=== PATIENT | female | born 1960 | race Caucasian/White ===

== ENCOUNTER 2021-11-26 16:02 | Outpatient (REF) | payer OTHER, SELFPAY ==
--- NOTE | ~2021-11-26 | XR_ITS ---
EXAMINATION: XR KNEE, LEFT CLINICAL INFORMATION: Arthropathic psoriasis COMPARISON: None TECHNIQUE: Four views of the left knee. FINDINGS: Bone alignment is normal. No fracture or dislocation is seen. There is slight lateral tilt of the patella and small osteophytes. The joint spaces are otherwise normal. There is a small joint effusion. There is an SFA vascular stent. XR/XR knee LT 3V IMPRESSION: Degenerative changes at the patellofemoral joint and small joint effusion.
[2021-11-26 16:33] LABS: MANUAL DIFF FLAG NO
[2021-11-26 17:47] LABS: Basophils Percent Auto 0.2 % (0-2); Eosinophils Absolute Auto 0.2 X10*3/uL (0.0-0.4); Eosinophils Percent Auto 2.2 % (0-4); Hematocrit 45.2 % (37.0-47.0); Hemoglobin 14.3 g/dl (12.0-16.0); Imm Gran Abs Auto 0.02 X10*3/uL (0.00-0.03); Imm Gran Pct Auto 0.2 % (0.0-0.4); Mean Corpuscular HGB Conc 31.6 g/dl (31.0-35.0); Mean Corpuscular Hemoglobin 29.5 pg (27.0-33.0); Mean Corpuscular Volume 93.4 fL (80.0-98.0); Mean Platelet Volume 10.4 fL (9.4-12.3); Monocytes Absolute Auto 0.7 X10*3/uL (0.1-1.2); Monocytes Percent Auto 8.8 % (2-11); Neutrophils Absolute Auto 4.2 x10*3/uL (2.0-8.3); Neutrophils Percent Auto 51.6 % (45-73); Platelet Count 284 X10*3/uL (160-400); Red Blood Count 4.84 X10*6/uL (4.20-5.50); Red Cell Distribution Width 13.1 % (11.0-16.0); White Blood Count 8.2 X10*3/uL (4.8-10.8)
[2021-11-26 18:17] LABS: Alanine Aminotransferase 12 U/L (0-31); Albumin Level 4.3 g/dL (3.5-5.0); Alkaline Phosphatase 111 U/L (39-117); Anion Gap 12 (12-20); Aspartate Amino Transferase 13 U/L (5-31); Bilirubin Total 0.3 mg/dL (0.0-1.0); Blood Urea Nitrogen 18 mg/dL (9-16); C Reactive Protein 0.27 mg/dL (< or = 0.50); Calcium 9.6 mg/dL (8.4-10.2); Carbon Dioxide 26 mmol/L (22-29); Chloride 107 mmol/L (96-108); Estimated Glomerular Filt Rate > 60; Glucose Random 80 mg/dL (60-115); Potassium 4.2 mmol/L (3.3-5.1); Sodium 141 mmol/L (135-145); Total Protein 6.9 g/dL (6.5-8.0)
[2021-11-26 18:30] LABS: Erythrocyte Sedimentation Rate 8 MM/HR (0-20)
== END 2021-11-26 16:03 | disposition home or self-care (01) ==
LOC: HO.LAB 16:02
PROVIDERS: PCP Internal Medicine; Visit Provider Internal Medicine Rheumatology
DX: L40.50 Arthropathic psoriasis, unspecified (principal); Z79.899 Other long term (current) drug therapy
CPT/HCPCS: 36415; 73562; 80053; 85025; 85652; 86140

== ENCOUNTER 2022-03-26 11:38 | Outpatient (REF) | payer OTHER, SELFPAY ==
--- NOTE | ~2022-03-26 | XR_ITS ---
EXAMINATION: XR FOOT, LEFT CLINICAL INFORMATION: Plantar fascial 5 pneumatosis. COMPARISON: None TECHNIQUE: AP, lateral, and oblique views of the left foot. FINDINGS: The bones and soft tissues are normal. No fracture. Alignment is anatomic. Joint spaces are maintained. XR/XR foot LT min 3V IMPRESSION: Unremarkable left foot exam.
== END 2022-03-26 11:39 | disposition home or self-care (01) ==
LOC: HO.XRAY 11:38
PROVIDERS: PCP Internal Medicine; Visit Provider Internal Medicine Rheumatology
DX: M72.2 Plantar fascial fibromatosis (principal)
CPT/HCPCS: 73630

== ENCOUNTER → 2022-10-01 10:18 | Outpatient (BNVA) | payer OTHER, SELFPAY | PROVIDERS: PCP Internal Medicine; Visit Provider Internal Medicine Rheumatology | DX: Z13.89 Encounter for screening for other disorder (principal) ==

== ENCOUNTER 2022-10-01 11:19 | Outpatient (REF) | payer OTHER, SELFPAY ==
[2022-10-01 13:19] LABS: MANUAL DIFF FLAG NO
[2022-10-01 13:23] LABS: Basophils Percent Auto 0.5 % (0-2); Eosinophils Absolute Auto 0.2 X10*3/uL (0.0-0.4); Hematocrit 44.4 % (37.0-47.0); Hemoglobin 14.3 g/dl (12.0-16.0); Imm Gran Abs Auto 0.02 X10*3/uL (0.00-0.03); Imm Gran Pct Auto 0.3 % (0.0-0.4); Lymphocytes Absolute Auto 2.4 X10*3/uL (1.2-4.9); Lymphocytes Percent Auto 31.5 % (20-40); Mean Corpuscular HGB Conc 32.2 g/dl (31.0-35.0); Mean Corpuscular Hemoglobin 30.8 pg (27.0-33.0); Mean Corpuscular Volume 95.7 fL (80.0-98.0); Mean Platelet Volume 10.7 fL (9.4-12.3); Monocytes Absolute Auto 0.6 X10*3/uL (0.1-1.2); Monocytes Percent Auto 8.1 % (2-11); Neutrophils Absolute Auto 4.4 x10*3/uL (2.0-8.3); Neutrophils Percent Auto 57.6 % (45-73); Platelet Count 236 X10*3/uL (160-400); Red Blood Count 4.64 X10*6/uL (4.20-5.50); Red Cell Distribution Width 13.5 % (11.0-16.0); White Blood Count 7.6 X10*3/uL (4.8-10.8)
[2022-10-01 13:39] LABS: C Reactive Protein 0.12 mg/dL (< or = 0.50)
[2022-10-01 14:01] LABS: Erythrocyte Sedimentation Rate 4 MM/HR (0-20)
[2022-10-03 19:53] LABS: TS Negative Control Passed; TS Panel A 1; TS Panel B 2; TS Positive Control Passed; TSpotTB Negative (Negative)
== END 2022-10-01 11:20 | disposition home or self-care (01) ==
LOC: HO.10HDL 11:19
PROVIDERS: Visit Provider Internal Medicine Rheumatology
DX: Z11.1 Encounter for screening for respiratory tuberculosis (principal); L40.50 Arthropathic psoriasis, unspecified; Z79.899 Other long term (current) drug therapy
CPT/HCPCS: 36415; 85025; 85652; 86140; 86481

== ENCOUNTER 2023-03-25 10:05 | Outpatient (AMB) | payer OTHER, SELFPAY ==
--- NOTE | 2023-03-25 10:56 | MHC.OFFVIS ---
Intake Vital Signs 03/25/23 11:03 Height 5 ft 1 in Weight 164 lb 0.383 oz BMI 31.0 BP 124/70 Blood Pressure Location Lt brachial Position Sitting Pulse 72 Pulse Source Pulse Oximeter Temp 97.2 F Temp Source Skin Pulse Oximetry (%) 95 Oxygen Delivery Method Room Air Intake Visit Reasons: psa Intake Note: Patient presents today for PsA follow up. Police Chief Required: No Accompanied by: Self / Same As Patient Allergies codeine Allergy (Intermediate, Verified 03/25/23 10:57) Nausea and Vomiting morphine Allergy (Intermediate, Verified 03/25/23 10:57) Nausea and Vomiting prednisone Allergy (Intermediate, Verified 03/25/23 10:57) Rash Medication List - Last Reconciled 03/25/23 by Aris Recinos MD acetaminophen (Tylenol Extra Strength) 1,000 mg PO DAILY atorvastatin 80 mg PO DAILY cilostazol 100 mg PO BID etanercept (Enbrel SureClick) 50 mg subcut QWEEK triamcinolone acetonide 0.1% 1 appl topical DAILY HPI HPI Comments History of Present Illness Details The patient returns for evaluation of her psoriatic arthritis and psoriasis. She remains on Enbrel 50 mg weekly. She reports no side effects that she can determine from the Enbrel. She does occasionally miss a dose because of forgetfulness but that does not really cause any flare of symptoms. However she does have a few patches of psoriasis on the right back and in the legs. She is using some aywp-jqv-avpoent corticosteroid cream and had been using triamcinolone cream but says that was not all that helpful. We discussed previously possibly switching to a different medication for the psoriasis and psoriatic rash trace but she was comfortable using the Enbrel. Her peripheral artery disease seems to be stable; she gets some cramping in the calf muscles with fast walking. 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 Carpal tunnel syndrome on both sides Psoriatic arthritis Surgical History Hx of cholecystectomy Hx of tendinitis History of carpal tunnel surgery Social History (Updated 03/25/23 @ 11:03 by ROMMEL Graham) Household Members Other:: lives alone Housing: Apartment Are you a primary laboratory animal care veterinarian to a significant other at home: No Do you presently have visiting nurse or other home services: No 75 years or older and lives alone: No Alcohol intake: never Patient Tobacco Use Status: Current everyday Tobacco user Tobacco use type: Cigarette Cigarettes Per Day: 2 Years Smoked: 35 years e-Cigarette/Vaping Use: Never Used service: No Current occupational status: employed Current occupation: production intern Review of Systems Const Details: Negative for appetite change, weight change, fever, chills, malaise and fatigue Eyes Details: Negative for vision change, dry eyes,headaches and dizziness Card Details: Negative chest pain, edema and syncope Resp Details: Negative for SOB, cough and wheezing GI Details: Negative indigestion/heartburn, nausea, abdominal pain, bowel changes, diarrhea, constipation and bloody stool. Denilson/Lymph Details: Negative for excessive bruising or bleeding. Physical Exam Vital Signs: Last Vital Signs Temp 97.2 F 03/25/23 11:03 Pulse 72 03/25/23 11:03 BP 124/70 03/25/23 11:03 Pulse Ox 95 03/25/23 11:03 Oxygen Delivery Method Room Air 03/25/23 11:03 BMI result Body Mass Index 31.0 APPEARANCE: Patient in no acute distress EYES no redness, pupils equal and reactive to light, eyelids normal EXTREMITIES:? No edema, no calf tenderness SKIN:? Scattered papules over the lower legs and right flank with some slight scaling consistent with psoriasis. JOINT EXAM: Cervical Spine:.? Full range of motion without pain; no tenderness. Thoracic Spine:.? No scoliosis.? No tenderness on palpation. Lumbar Spine:.? Alignment normal.? Full range of motion without pain, no tenderness. Chest Wall:.? No tenderness, swelling, increased warmth or erythema. Hands:.? Right:? There is some slight bony enlargement without tenderness at the PIP joints.? There is some catching and tenderness along the 4th flexor tendon. There is no other soft tissue swelling, thenar atrophy, flexor tendon triggering, or sensory loss.? Left:? Normal pain-free range of motion with some slight bony enlargement without tenderness at the PIP joints.? No flexor tendon triggering, soft tissue swelling, increased warmth, thenar atrophy, sensory loss or erythema. Wrists:.? Normal pain-free range of motion without tenderness, swelling, increased warmth or erythema. Elbows:. Normal pain-free range of motion without tenderness, swelling, increased warmth or erythema. Shoulders:.?? Full range of motion without pain. No tenderness, weakness, swelling, increased warmth or erythema. Hips:.? Full range of motion without pain. Hip bursa:.? No tenderness. Knees:.??Left:? Normal pain-free range of motion.? There is no effusion, tenderness, redness, warmth, or popliteal tenderness.? She has mild patellofemoral crepitus.? Right:? Normal pain-free range of motion with slight patellofemoral crepitus but no effusion, tenderness, swelling, increased warmth or erythema.? Ankles:.? Normal pain-free range of motion without tenderness, swelling, increased warmth or erythema. The the shorter Feet: Right:? Slight hallux valgus deformity and bony enlargement at the 1st MTP.? However there is no tenderness in that foot.? No areas of soft tissue swelling or redness.? Left:? There is no medial heel tenderness.? Elsewhere her other joints in the foot have pain-free range of motion with no tenderness, swelling, increased warmth or erythema. ? EARS: External ear normal, canal clear and tympanic membrane normal. NOSE/SINUS: Airflow through both nares, no nasal discharge, no bleeding THROAT: Oral mucosa moist, no ulcerations NECK: No thyromegaly or masses, no adenopathy, trachea midline. HEART: Regulrar rhythm, S1-S2 heard, no murmurs, rubs or gallops. LUNG: Clear to percussion and auscultation ABD: Normal bowel sounds, no organomegaly, masses or tenderness. EXTREMITIES: No edema, no calf tenderness, normal peripheral pulses. NEURO: Oriented and alert x3. No focal weakness. Reflexes symmetric. Gait normal. SKIN: No inflammatory or neoplastic lesions. Normal color and turgor JOINT EXAM:.?? Cervical Spine:.? Full range of motion without pain; no tenderness. Thoracic Spine:.? No scoliosis.? No tenderness on palpation. Lumbar Spine:.? Alignment normal.? Full range of motion without pain, no tenderness. Chest Wall:.? No tenderness, swelling, increased warmth or erythema. Hands:.? Normal pain-free range of motion without tenderness, swelling, increased warmth or erythema. Able to make a full fist and has a good plant operator/shift supervisor strength. Wrists:.? Normal pain-free range of motion without tenderness, swelling, increased warmth or erythema. Elbows:. Normal pain-free range of motion without tenderness, swelling, increased warmth or erythema. Shoulders:.?? Full range of motion without pain. No tenderness, weakness, swelling, increased warmth or erythema. Hips:.? Full range of motion without pain. Hip bursa:.? No tenderness. Knees:.?? Normal pain-free range of motion without tenderness, swelling, increased warmth or erythema.? There is no effusion or crepitation Ankles:.? Normal pain-free range of motion without tenderness, swelling, increased warmth or erythema. Feet:.? Normal pain-free range of motion without tenderness, swelling, increased warmth or erythema. Tender points:.? No tenderness to digital palpation at the occiput, trapezius, second rib, lateral epicondyle, knees, greater trochanter and gluteal area bilaterally. ? 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 Some MTP involvement, trigger fingers. Enbrel 02/25 through 04/27 - some improvement in arthritis but not enough to continue. She had CTR and tendon releases that were helpful Enbrel restarted ~ 2012 by dermatology for skin disease with good improvement. Enbrel stopped due to insurance denial 12/29. Skin and joint disease gradually worse fall 2015 - 2016. Methotrexate restarted 10/30, Enbrel added Methotrexate stopped, May 2017 since the Enbrel worked so well and the methotrexate was costly for her. Code(s): L40.50 - Arthropathic psoriasis, unspecified Plan Psoriatic arthritis with good control of synovitis on the just the Enbrel. The psoriasis seems a bit more active but she admits to occasionally missing a dose of the Enbrel. We discussed possibly switching to a trial of Humira or Otezla to see if we could get better control of the psoriasis but she wants to stay with the Enbrel. I will prescribe some clobetasol cream and see if that is covered on her insurance. She was also offered a dermatology referral but does not want to do that yet. The Enbrel will be continued for now. Follow up in 6 months is recommended. 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
[2023-03-25 11:03] VITALS: BP 124/70; PULSE 72; TEMP 36.2; O2SAT 95; BMI 31.0
== END 2023-03-25 11:47 | disposition home or self-care (01) ==
PROVIDERS: PCP Internal Medicine; Visit Provider Internal Medicine Rheumatology
DX: L40.9 Psoriasis, unspecified (principal); Z79.899 Other long term (current) drug therapy; L40.50 Arthropathic psoriasis, unspecified
CPT/HCPCS: 99213

== ENCOUNTER → 2023-03-25 10:05 | Outpatient (BNVA) | payer OTHER, SELFPAY | PROVIDERS: PCP Internal Medicine; Visit Provider Internal Medicine Rheumatology ==

== ENCOUNTER 2023-09-24 10:01 | Outpatient (AMB) | payer OTHER, SELFPAY ==
[2023-09-24 10:24] VITALS: BP 132/64; PULSE 80; O2SAT 96; BMI 29.8
--- NOTE | 2023-09-24 10:24 | A.OFFVIS_ITS ---
Intake Vital Signs 3 09/24/23 10:24 Height 5 ft 1 in Weight 157 lb 13.616 oz BMI 29.8 BP 132/64 Blood Pressure Location Rt brachial Position Sitting Pulse 80 Pulse Source Pulse Oximeter Pulse Oximetry (%) 96 Oxygen Delivery Method Room Air Intake Visit Reasons: psa with Dr Vasquez Intake Note: Patient last seen by Dr Recinos 03/25/23 presents today for follow up and test results. Reports bl hip pain progressing Cable Weaver Required: No Accompanied by: Self / Same As Patient Allergies codeine Allergy (Intermediate, Verified 09/24/23 10:27) Nausea and Vomiting morphine Allergy (Intermediate, Verified 09/24/23 10:27) Nausea and Vomiting prednisone Allergy (Intermediate, Verified 09/24/23 10:27) Rash Medication List - Last Reconciled 09/24/23 by Walter Vasquez MD acetaminophen (Tylenol Extra Strength) 1,000 mg PO DAILY atorvastatin 80 mg PO DAILY cilostazol 100 mg PO BID clobetasol 0.05% 1 appl topical BID 1 month Enbrel SureClick (etanercept) 50 mg subcut QWEEK NS triamcinolone acetonide 0.1% 1 appl topical DAILY HPI HPI Comments 2 History of Present Illness0 Details 63-year-old female with psoriasis and ps oriatic arthritis returns for follow-up. This is her 1st visit with me. She used to follow-up with Dr. Recinos. Patient states that she has been doing about the same overall. Continues to have psoriasis patches on her legs. She has been using psoriasin cream which helps. She continues to have pain on the outer aspect of both hips, more significant on the left. Most recent history by Dr. Recinos 03/2023: The patient returns for evaluation of her psoriatic arthritis and psoriasis. She remains on Enbrel 50 mg weekly. She reports no side effects that she can determine from the Enbrel. She does occasionally miss a dose because of forgetfulness but that does not really cause any flare of symptoms. However she does have a few patches of psoriasis on the right back and in the legs. She is using some qjhb-nzn-courqlc corticosteroid cream and had been using triamcinolone cream but says that was not all that helpful. We discussed previously possibly switching to a different medication for the psoriasis and psoriatic rash trace but she was comfortable using the Enbrel. Her peripheral artery disease seems to be stable; she gets some cramping in the calf muscles with fast walking. [facility] Medical History long-term current use of immunosuppressive drug Carpal tunnel syndrome on both sides Psoriatic arthritis Surgical History Hx of cholecystectomy Hx of tendinitis History of carpal tunnel surgery Social History Household Members Other:: lives alone Housing: Apartment Are you a primary child care giver to a significant other at home: No Do you presently have visiting nurse or other home services: No 75 years or older and lives alone: No Alcohol intake: never Patient Tobacco Use Status: Current everyday Tobacco user Tobacco use type: Cigarette Cigarettes Per Day: 2 Years Smoked: 35 years e-Cigarette/Vaping Use: Never Used service: No Current occupational status: employed Current occupation: production roustabout Review of Systems Musc Reports arthralgias Skin/Breast Reports pruritus and Reports rash Physical Exam Vital Signs: Last Vital Signs Pulse 80 09/24/23 10:24 BP 132/64 09/24/23 10:24 Pulse Ox 96 09/24/23 10:24 Oxygen Delivery Method Room Air 09/24/23 10:24 BMI result Body Mass Index 29.8 Const General: cooperative, healthy appearing and comfortable Nutritional Appearance: overweight Orientation/consciousness: patient oriented x3 Limitations: no limitations HEENT Head: Yes normocephalic and Yes atraumatic Mouth: moist mucous membranes Resp Effort & Inspection: normal respiratory effort and able to speak in complete sentences Auscultation: clear to auscultation bilaterally Cardio Rate: regular rate Skin Other: Psoriasis patches on both knees and right leg Neuro General: patient oriented x3 Extrem Other: Osteoarthritic changes of both hands with no active synovitis Normal range of motion of both shoulders Left trochanteric bursa area tenderness Assessment & Plan Assessment & Plan (1) Psoriatic arthritis: Comment: Pauci-articular, onset early 2007. Some MTP involvement, trigger fingers. Enbrel 02/25 through 04/27 - some improvement in arthritis but not enough to continue. She had CTR and tendon releases that were helpful Enbrel restarted ~ 2012 by dermatology for skin disease with good improvement. Enbrel stopped due to insurance denial 12/29. Skin and joint disease gradually worse fall 2015 - 2016. Methotrexate restarted 10/30, Enbrel added Methotrexate stopped, May 2017 since the Enbrel worked so well and the methotrexate was costly for her. Code(s): L40.50 - Arthropathic psoriasis, unspecified Plan: This is a 63-year-old female with psoriasis and psoriatic arthritis who presents for follow-up. This is her 1st visit with me. She used to follow-up with Dr. Recinos. And is doing fairly well. There is no active synovitis. She continues to have psoriasis patches but they are not bothersome for her. In the past there was some suggestion to switch to Humira or Otezla but patient was not interested. 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 Panel 6 Months L40.50 - Arthropathic psoriasis, unspecified C Reactive Protein 6 Months L40.50 - Arthropathic psoriasis, unspecified T Spot TB 6 Months Z11.7 - Encounter for testing for latent tuberculosis infection Erythrocyte Sedimentation Rate 6 Months L40.50 - Arthropathic psoriasis, unspecified Hepatitis A,B,C Profile 6 Months Z11.59 - Encounter for screening for other viral diseases Coding Level of Care Code Est Pt Level 4 (43027) Diagnoses Psoriatic arthritis L40.50 long-term current use of immunosuppressive drug Z79.899 Psoriasis L40.9 Trochanteric bursitis of left hip M70.62
== END 2023-09-24 10:51 | disposition home or self-care (01) ==
PROVIDERS: PCP Internal Medicine; Visit Provider Student in an Organized Health Care Education/Training Program
DX: L40.50 Arthropathic psoriasis, unspecified (principal); Z79.899 Other long term (current) drug therapy; L40.9 Psoriasis, unspecified; M70.62 Trochanteric bursitis, left hip
CPT/HCPCS: 99214

== ENCOUNTER → 2023-09-24 10:01 | Outpatient (BNVA) | payer OTHER, SELFPAY | PROVIDERS: PCP Internal Medicine; Visit Provider Student in an Organized Health Care Education/Training Program ==

== ENCOUNTER 2024-03-25 10:35 | Outpatient (AMB) | payer OTHER, SELFPAY ==
--- NOTE | 2024-03-25 10:36 | A.OFFVIS_ITS ---
Vital Signs 03/25/24 10:41 Height 5 ft 1 in Weight 160 lb 7.944 oz BMI 30.3 BP 122/62 Blood Pressure Location Rt brachial Position Sitting Pulse 69 Pulse Source Pulse Oximeter Pulse Oximetry (%) 97 Oxygen Delivery Method Room Air Intake Visit Reasons: PsA Intake Note: Patient presents for PsA. Allergies codeine Allergy (Intermediate, Verified 03/25/24 10:39) Nausea and Vomiting morphine Allergy (Intermediate, Verified 03/25/24 10:39) Nausea and Vomiting prednisone Allergy (Intermediate, Verified 03/25/24 10:39) Rash Medication List - Last Reconciled 03/25/24 by Walter Vasquez MD acetaminophen (Tylenol Extra Strength) 1,000 mg PO DAILY atorvastatin 80 mg PO DAILY cilostazol 100 mg PO BID clobetasol 0.05% 1 appl topical BID 1 month Enbrel SureClick (etanercept) 50 mg subcut QWEEK NS triamcinolone acetonide 0.1% 1 appl topical DAILY HPI Comments Details: 63-year-old female with psoriasis and psoriatic arthritis returns for follow-up. She remains on Enbrel 50 mg once weekly Patient states that she has been doing about the same overall. Continues to have psoriasis patches on her legs. She uses OTC creams which provides some relief. She continues to have pain on the outer aspect of both hips, more significant on the left. 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 Carpal tunnel syndrome on both sides Psoriatic arthritis Surgical History Hx of cholecystectomy Hx of tendinitis History of carpal tunnel surgery Family History Mother Cancer Social History Household Members Other:: lives alone Housing: Apartment Are you a primary rn managed care to a significant other at home: No Do you presently have visiting nurse or other home services: No 75 years or older and lives alone: No Alcohol intake: never Patient Tobacco Use Status: Current everyday Tobacco user Tobacco use type: Cigarette Cigarettes Per Day: 2 Years Smoked: 35 years e-Cigarette/Vaping Use: Never Used service: No Current occupational status: employed Current occupation: production operator Review of Systems [facility] Reports arthralgias Skin/Breast Reports pruritus and Reports rash Physical Exam Vital Signs: Last Vital Signs Pulse 69 03/25/24 10:41 BP 122/62 03/25/24 10:41 Pulse Ox 97 03/25/24 10:41 Oxygen Delivery Method Room Air 03/25/24 10:41 BMI result Body Mass Index 30.3 Const General: cooperative, healthy appearing and comfortable Nutritional Appearance: overweight Orientation/consciousness: patient oriented x3 Limitations: no limitations HEENT Head: Yes normocephalic and Yes atraumatic Mouth: moist mucous membranes Resp Effort & Inspection: normal respiratory effort and able to speak in complete sentences Auscultation: clear to auscultation bilaterally Cardio Rate: regular rate Skin Other: Subtle psoriasis patches on her left Neuro General: patient oriented x3 Extrem Other: Osteoarthritic changes of both hands with no active synovitis Normal range of motion of both shoulders Left trochanteric bursa area tenderness with negative Alma Delia's test Assessment & Plan Assessment & Plan (1) Psoriatic arthritis: Comment: Pauci-articular, onset early 2007. Some MTP involvement, trigger fingers. Enbrel 02/25 through 04/27 - some improvement in arthritis but not enough to continue. She had CTR and tendon releases that were helpful Enbrel restarted ~ 2012 by dermatology for skin disease with good improvement. Enbrel stopped due to insurance denial 12/29. Skin and joint disease gradually worse fall 2015 - 2016. Methotrexate restarted 10/30, Enbrel added Methotrexate stopped, May 2017 since the Enbrel worked so well and the methotrexate was costly for her. Code(s): L40.50 - Arthropathic psoriasis, unspecified Category: Medical Plan: This is a 63-year-old female with psoriasis and psoriatic arthritis who presents for follow-up. She is doing fairly well. There is no active synovitis. She continues to have psoriasis patches but they are not bothersome for her. In the past there was some suggestion to switch to Humira or Otezla but patient was not interested. 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 Patient fully aware. Advised patient to seek medical care GAURAV if patient has an infection and advised patient to stop the medication until the infection is resolved. (3) Psoriasis: Code(s): L40.9 - Psoriasis, unspecified Category: Medical Plan: As mentioned above (4) Trochanteric bursitis of left hip: Code(s): M70.62 - Trochanteric bursitis, left hip Category: Medical Plan: Provide patient with a printout of home exercises Plan I spent 30 minutes reviewing patient's chart, evaluating patient, ordering diagnostic workup, counseling patient and documenting in the chart Orders: Orders Comprehensive Met. 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
[2024-03-25 10:41] VITALS: BP 122/62; PULSE 69; O2SAT 97; BMI 30.3
== END 2024-03-25 10:54 | disposition home or self-care (01) ==
PROVIDERS: PCP Internal Medicine; Visit Provider Student in an Organized Health Care Education/Training Program
DX: L40.50 Arthropathic psoriasis, unspecified (principal); Z79.899 Other long term (current) drug therapy; L40.9 Psoriasis, unspecified; M70.62 Trochanteric bursitis, left hip
CPT/HCPCS: 99214

== ENCOUNTER → 2024-03-25 10:35 | Outpatient (BNVA) | payer OTHER, SELFPAY | PROVIDERS: PCP Internal Medicine; Visit Provider Student in an Organized Health Care Education/Training Program ==

== ENCOUNTER 2024-03-25 11:02 | Outpatient (REF) | payer OTHER, SELFPAY ==
[2024-03-25 13:08] LABS: MANUAL DIFF FLAG NO
[2024-03-25 13:13] LABS: Basophils Absolute Auto 0.1 X10*3/uL (0.0-0.2); Basophils Percent Auto 0.6 % (0-2); Eosinophils Absolute Auto 0.6 X10*3/uL (0.0-0.4); Eosinophils Percent Auto 7.1 % (0-4); Hematocrit 44.5 % (37.0-47.0); Hemoglobin 14.5 g/dl (12.0-16.0); Imm Gran Abs Auto 0.02 X10*3/uL (0.00-0.03); Imm Gran Pct Auto 0.2 % (0.0-0.4); Lymphocytes Absolute Auto 2.1 X10*3/uL (1.2-4.9); Lymphocytes Percent Auto 26.4 % (20-40); Mean Corpuscular HGB Conc 32.6 g/dl (31.0-35.0); Mean Corpuscular Hemoglobin 30.1 pg (27.0-33.0); Mean Corpuscular Volume 92.5 fL (80.0-98.0); Mean Platelet Volume 10.1 fL (9.4-12.3); Monocytes Absolute Auto 0.6 X10*3/uL (0.1-1.2); Monocytes Percent Auto 6.9 % (2-11); Neutrophils Absolute Auto 4.7 x10*3/uL (2.0-8.3); Neutrophils Percent Auto 58.8 % (45-73); Platelet Count 224 X10*3/uL (160-400); Red Blood Count 4.81 X10*6/uL (4.20-5.50); Red Cell Distribution Width 13.8 % (11.0-16.0); White Blood Count 8.1 X10*3/uL (4.8-10.8)
[2024-03-25 13:33] LABS: Alanine Aminotransferase 14 U/L (0-31); Albumin Level 3.9 g/dL (3.5-5.0); Alkaline Phosphatase 88 U/L (39-117); Anion Gap 10 (12-20); Aspartate Amino Transferase 16 U/L (5-31); Bilirubin Total 0.3 mg/dL (0.0-1.0); Blood Urea Nitrogen 16 mg/dL (9-16); C Reactive Protein 0.81 mg/dL (< or = 0.50); Calcium 9.7 mg/dL (8.4-10.2); Carbon Dioxide 28 mmol/L (22-29); Chloride 107 mmol/L (96-108); Estimated Glomerular Filt Rate > 60; Glucose Random 148 mg/dL (60-115); Potassium 3.9 mmol/L (3.3-5.1); Sodium 141 mmol/L (135-145); Total Protein 6.7 g/dL (6.5-8.0)
[2024-03-25 13:57] LABS: Erythrocyte Sedimentation Rate 7 MM/HR (0-20)
[2024-03-28 16:03] LABS: TS Negative Control Passed; TS Panel A 0; TS Panel B 4; TS Positive Control Passed; TSpotTB Negative (Negative)
== END 2024-03-25 11:03 | disposition home or self-care (01) ==
LOC: HO.10HDL 11:02
PROVIDERS: Visit Provider Student in an Organized Health Care Education/Training Program
DX: L40.50 Arthropathic psoriasis, unspecified (principal); Z11.7 Encounter for testing for latent tuberculosis infection
CPT/HCPCS: 36415; 80053; 85025; 85652; 86140; 86481